=== PATIENT | male | born 1965 | race Caucasian/White ===

== ENCOUNTER → 2023-04-24 | Outpatient (CLI) | payer BC, SELFPAY ==
--- NOTE | 2023-04-24 09:40 | RAD_ITS ---
ACR Level 3 findings have been noted. An addendum which confirms receipt of the report will follow. INDICATION: injury EXAMINATION/TECHNIQUE: X-RAY - LEFT FOOT XR Toes Min 2 Views 4 VIEWS COMPARISON: FINDINGS: SOFT TISSUES: No soft tissue swelling or gas. No radiopaque foreign body. BONES/JOINTS: There is a questionable fracture line involving the medial aspect of the base of the fifth distal phalanx. RAD/Toe(s) Min 2 Views IMPRESSION: There is a questionable fracture line involving the medial aspect of the base of the fifth distal phalanx. Electronically Signed: Aiden Dobbs, at 10:24 EDT ,
== END | disposition home or self-care (01) ==
LOC: MTRAD 09:37
PROVIDERS: Referring Provider Physician Assistant; Visit Provider Physician Assistant
DX: S97.122A Crushing injury of left lesser toe(s), initial encounter (principal); X58.XXXA Exposure to other specified factors, initial encounter
CPT/HCPCS: 73660